=== PATIENT | female | born 1990 | race Caucasian/White ===

== ENCOUNTER → 2018-10-23 | Outpatient (REF) ==
--- NOTE | 2018-10-23 18:03 | Diagnostic Imaging Report ---
INDICATION: Fall with right hand injury. TIME OF EXAM: 3:26 p.m. Three views of the right hand were obtained. FINDINGS: Metacarpals are intact. Phalanges appear intact. No fractures are seen. Soft tissues are unremarkable. IMPRESSION: No acute bony abnormality is detected. Dictated by: Dictated on workstation # [id number]
--- NOTE | 2018-10-23 18:40 | Diagnostic Imaging Report ---
INDICATION: Fall with right wrist injury. TIME OF EXAM: 3:28 p.m. Three views of the right wrist were obtained. FINDINGS: Distal radius and ulna appear to be intact. Carpus appears intact. No fractures are seen. IMPRESSION: No acute bony abnormality is detected. Dictated by: Dictated on workstation # [id number]
== END | disposition home or self-care (01) ==
LOC: OCC 14:48
PROVIDERS: ATTEND Nurse Practitioner Family
CPT/HCPCS: 73110; 73130